=== PATIENT | female | born 1990 | race Caucasian/White ===

== ENCOUNTER 2021-06-29 04:38 | Emergency (ER) | payer BC ==
[2021-06-29] MEDS ORDERED: Ondansetron PF 4 MG/2 ML Vial ONE ×2 (05:36→10:02)
[2021-06-29] MEDS ORDERED: Morphine 4 MG/ML VIAL ONE ×2 (05:36→09:08)
[2021-06-29 05:45] LABS: #Monocytes 1.1 10x3/uL (0.0-1.1); #Neutrophils 11.5 10x3/uL (1.5-8.4); %Basophils 0.2 % (0.0-2.0); %Eosinophils 0.1 % (0.0-6.0); %Monocytes 7.3 % (0.0-10.0); Hemoglobin 11.5 g/dL (12.0-15.5); Mean Corpuscular HGB CONC 33.6 g/dL (32.0-36.0); Mean Corpuscular Hemoglobin 30.3 pg (27.0-33.0); Mean Platelet Volume 10.4 fl (7.4-10.4); Platelet Count 288 10x3/uL (150-450); RBC Distribution Width 12.2 % (11.5-14.5); White Blood Cell (WBC) Count 14.6 10x3/uL (3.5-10.5)
[2021-06-29 05:52] LABS: ALT (SGPT) 15 U/L (8-55); AST (SGOT) 16 U/L (5-34); Albumin 4.2 g/dL (3.5-5.0); Alkaline Phosphatase 44 U/L (40-110); Anion Gap 13 mmol/L (10-20); BUN (Urea Nitrogen) 11 mg/dL (7.0-18.7); Bilirubin, Total 0.6 mg/dL (0.2-1.2); Calc. Creatinine Clearance 0 mL/min (70-130); Calcium 9.3 mg/dL (7.8-10.44); Carbon Dioxide 22 mmol/L (22-29); Chloride 106 mmol/L (98-107); Globulin 2.5 g/dL (2.4-3.5); Glucose 103 mg/dL (70-105); Lipase 11 U/L (8-78); Potassium 4.1 mmol/L (3.5-5.1); Protein, Total 6.7 g/dL (6.0-8.3); Sodium 137 mmol/L (136-145)
[2021-06-29 06:46] LABS: Bilirubin Neg (Negative); Blood, Urine Negative (Negative); Clarity Clear (Clear); Glucose, Urine (Dipstick) Normal (Negative); Ketone, Urine Negative (Negative); Leukocyte Negative (Negative); Nitrite Negative (Negative); Protein, Urine (Dipstick) Negative (Neg-Trace); Urobilinogen Normal mg/dL (Less than 2)
[2021-06-29 06:47] LABS: Pregnancy Test - Urine (BHCG) POSITIVE (Negative); Pregu Control Background? CLEAR/WHITE (CLR/WHITE); Pregu Control Bar Appear? YES (CONTROL BAR)
[2021-06-29] MEDS ORDERED: Bupivacaine PF 0.5% 30 ML VIAL ONE (09:18)
[2021-06-29] MEDS ORDERED: EPINEPHrine 1 MG/ML AMP ONE (09:19)
[2021-06-29 09:54] LABS: SARS-CoV-2 NAA Rapid Test Not Detected (NotDetected)
[2021-06-29] MEDS ORDERED: PROPOFOL 20 ML ONE (10:01)
[2021-06-29] MEDS ORDERED: Fentanyl 100 MCG/2 ML VIAL ONE ×2 (10:01→11:01)
[2021-06-29] MEDS ORDERED: Dexamethasone 4 mg/ml Vial ONE (10:02)
[2021-06-29] MEDS ORDERED: Rocuronium Bromide 10 MG/ML (10ML VIAL) ONE (10:02)
[2021-06-29] MEDS ORDERED: Lidocaine 2% PF 5 ML VIAL ONE (10:02)
[2021-06-29] MEDS ORDERED: Midazolam HCl 2 mg/2 ml Vial ONE (10:06)
[2021-06-29] MEDS ORDERED: Ketorolac Tromethamine 30 MG/ML VIAL ONE (10:29)
[2021-06-29] MEDS ORDERED: PHENYLEPHRINE-NS 100 MCG/ML 10 ML SYRINGE ONE (10:43)
[2021-06-29] MEDS ORDERED: Glycopyrrolate 0.2 MG/ML 5 ML SYRINGE ONE (11:26)
[2021-06-29] MEDS ORDERED: Metoclopramide HCl 10 MG/2 ML VIAL ONE (11:28)
[2021-06-29] MEDS ORDERED: Meperidine HCl/PF 25 MG/ML VIAL ONE (12:10)
== END 2021-06-29 10:07 | disposition admitted as inpatient to this hospital (09) ==
LOC: CSHERS 04:38
PROC: 0U914ZZ Drainage of Left Ovary, Percutaneous Endoscopic Approach (ICD-10-PCS; principal; 2021-06-29)
DX: O00.90 Unspecified ectopic pregnancy without intrauterine pregnancy (principal); Z20.822 Contact with and (suspected) exposure to COVID-19
CPT/HCPCS: 76856; 80053; 81003; 81025; 83690; 84702; 85025; 86850; 86900; 86901; 96374; 96376; J0171; J1100; J1885; J2001; J2175; J2250; J2270; J2405; J2704; J2765; J3010; S0020; U0002

== ENCOUNTER 2023-06-30 05:29 | Inpatient (IN) | payer BC ==
[2023-06-27 10:44] LABS: Hematocrit 34.9 % (34.9-44.5); Hemoglobin 11.5 g/dL (12.0-15.5); Platelet Count 222 10x3/uL (150-450)
[2023-06-27 11:14] LABS: HBSAg Index 0.17 S/CO (0-0.99); Hep B Surf Ag Non-Reactive S/CO (NonReactive); Syphilis Antibody Nonreactive (Nonreactive); Syphilis Antibody Index 0.03 S/CO (<1.00 Non-Reactive)
[2023-06-30 06:18] VITALS: BMI 29.0
[2023-06-30] MEDS ORDERED: Ondansetron PF 4 MG/2 ML Vial IVP PRN ×2 (06:18→08:42)
[2023-06-30] MEDS ORDERED: hydrALAZINE 20 MG/ML VIAL SLOW IVP PRN (06:18)
[2023-06-30] MEDS ORDERED: Bicitra 30 ML UDCUP PO PRN (06:18)
[2023-06-30] MEDS ORDERED: Promethazine HCl 25 MG/ML VIAL IM PRN ×2 (06:18→08:42)
[2023-06-30] MEDS ORDERED: Famotidine/PF 20 mg/2ml Vial SLOW IVP PRN (06:18)
[2023-06-30] MEDS ORDERED: CEFAZOLIN 2 GM in Sodium Chloride 0.9% 100 ML IVPB SCH (06:30)
[2023-06-30] MEDS ORDERED: NS w/ Oxytocin 30 units 500 ML IV SCH (06:30)
[2023-06-30] MEDS ORDERED: Ondansetron PF 4 MG/2 ML Vial ONE (07:03)
[2023-06-30] MEDS ORDERED: Dexamethasone 4 mg/ml Vial ONE (07:03)
[2023-06-30] MEDS ORDERED: fentaNYL 50 mcg/mL 1 mL Vial ONE (07:03)
[2023-06-30] MEDS ORDERED: Phenylephrine 10 MG/ML VIAL ONE (07:03)
[2023-06-30] MEDS ORDERED: Morphine PF 10 MG/10 ML VIAL ONE (07:03)
[2023-06-30] MEDS ORDERED: Erythromycin Base 0.5% Oint 1 GM TUBE ONE (07:31)
[2023-06-30] MEDS ORDERED: Phytonadione Neonatal 1 MG/0.5 ML AMP ONE (07:31)
[2023-06-30] MEDS ORDERED: Hepatitis B Vaccine 10 MCG/0.5 ML SYR ONE (07:32)
[2023-06-30] MEDS ORDERED: Oxytocin 10 UNITS/ML VIAL ONE (08:21)
[2023-06-30] MEDS ORDERED: diphenhydrAMINE 50 MG/ML VIAL IVP PRN (08:42)
[2023-06-30] MEDS ORDERED: Naloxone HCl 0.4 mg/ml Vial IVP PRN ×2 (08:42)
[2023-06-30] MEDS ORDERED: Naloxone HCl 0.4 mg/ml Vial IV PRN (08:42)
[2023-06-30] MEDS ORDERED: Moisturizing Cream (Eucerin) 113 GM JAR TOP PRN (08:42)
[2023-06-30] MEDS ORDERED: Meperidine HCl/PF 25 MG/ML VIAL SLOW IVP PRN (08:42)
[2023-06-30] MEDS ORDERED: Ondansetron HCl/PF 4 MG/2 ML Vial IVP PRN (08:42)
[2023-06-30] MEDS ORDERED: Promethazine HCl 25 MG SUPP PR PRN (08:42)
[2023-06-30] MEDS ORDERED: Fentanyl 50 MCG/1 ML VIAL SLOW IVP PRN (08:42)
[2023-06-30] MEDS ORDERED: L&D-HYDROmorphone 0.5 MG/0.5 ML SYRINGE SLOW IVP PRN (08:42)
[2023-06-30] MEDS ORDERED: Communication Order-Pharmacy FS SCH (08:45)
[2023-06-30] MEDS ORDERED: Ketorolac Tromethamine 30 MG/ML VIAL IVP SCH (08:45)
[2023-06-30] MEDS: Ketorolac Tromethamine 30 MG/ML VIAL IVP PRN ×3 (10:37→23:32)
[2023-07-01] MEDS: Ketorolac Tromethamine 30 MG/ML VIAL IVP PRN (05:42)
[2023-07-01] MEDS ORDERED: HYDROcodone/Acetaminophen 5/325 mg Tablet PO PRN (08:00)
[2023-07-01] MEDS: HYDROcodone/Acetaminophen 5/325 mg Tablet PO PRN ×2 (09:14→16:57)
[2023-07-01] MEDS: Ibuprofen 800 MG TAB PO PRN (13:59)
[2023-07-01] MEDS: Simethicone Chewable 80 MG TAB PO PRN (21:10)
[2023-07-02] MEDS: Ibuprofen 800 MG TAB PO PRN ×2 (01:00→10:38)
[2023-07-02 07:35] VITALS: BP 103/63; TEMP 98
[2023-07-02] MEDS: HYDROcodone/Acetaminophen 5/325 mg Tablet PO PRN (07:35)
[2023-07-02] MEDS: Simethicone Chewable 80 MG TAB PO PRN (07:50)
== END 2023-07-02 11:10 | disposition home or self-care (01) | DRG 788 ==
LOC: CSHLD 05:29 → CSHPP 10:48
PROVIDERS: ADMIT Obstetrics & Gynecology; ATTEND Obstetrics & Gynecology
PROC: 10D00Z1 Extraction of Products of Conception, Low, Open Approach (ICD-10-PCS; principal; 2023-06-30)
PROC: 3E033VJ Introduction of Other Hormone into Peripheral Vein, Percutaneous Approach (ICD-10-PCS; 2023-06-30)
DX: O34.211 Maternal care for low transverse scar from previous cesarean delivery (principal); O99.824 Streptococcus B carrier state complicating childbirth; Z3A.39 39 weeks gestation of pregnancy; Z37.0 Single live birth
CPT/HCPCS: 51702; 85014; 85018; 85049; 86780; 86850; 86900; 86901; 87340; J1100; J1885; J2274; J2370; J2405; J2590; J3010; J3490; S0028